=== PATIENT | female | born 1930 | race Caucasian/White ===

== ENCOUNTER 2022-01-21 07:31 | Emergency (ER) | payer MEDICARE ==
[2022-01-21] MEDS ORDERED: Iopamidol 370 76% 100 ML VIAL FS ONE (07:32)
[2022-01-21] MEDS ORDERED: Pantoprazole 40 MG VIAL ONE ×2 (07:48→08:45)
[2022-01-21 07:57] LABS: #Basophils 0.1 thou/uL (0.0-0.2); #Eosinphils 0.5 thou/uL (0.0-0.7); #Lymphocytes 1.3 thou/uL (1.20-3.40); #Monocytes 0.8 thou/uL (0.11-0.59); %Basophils 0.5 % (0.0-1.0); %Eosinophils 5.7 % (0.0-10.0); %Lymphocytes 13.6 % (21.0-51.0); %Monocytes 7.8 % (0.0-10.0); %Neutrophils 72.4 % (42.0-75.0); Hemoglobin 12.4 g/dL (12.0-16.0); Mean Corpuscular HGB CONC 33.8 g/dL (32.0-36.0); Mean Corpuscular Hemoglobin 31.1 pg (27.0-31.0); Mean Platelet Volume 5.9 fL (7.4-10.4); Platelet Count 306 thou/uL (130-400); RBC Distribution Width 11.4 % (11.5-14.5); Red Blood Cell (RBC) Count 3.98 mill/uL (4.20-5.40); White Blood Cell (WBC) Count 9.6 thou/uL (4.8-10.8)
[2022-01-21 08:09] LABS: INR-International Normal Ratio 1.1; Prothrombin Time 13.9 sec (12.0-14.7)
[2022-01-21 08:10] LABS: PTT 47.8 sec (22.9-36.1)
[2022-01-21 08:12] LABS: ALT (SGPT) 10 U/L (8-55); AST (SGOT) 15 U/L (5-34); Albumin 3.8 g/dL (3.4-4.8); Alkaline Phosphatase 80 U/L (40-110); Anion Gap 15 mmol/L (10-20); BUN (Urea Nitrogen) 21 mg/dL (9.8-20.1); Bilirubin, Total 0.6 mg/dL (0.2-1.2); Calc. Creatinine Clearance 0 mL/min (70-130); Calcium 9.4 mg/dL (7.8-10.44); Carbon Dioxide 20 mmol/L (23-31); Chloride 110 mmol/L (98-107); Estimated GFR 67; Globulin 2.8 g/dL (2.4-3.5); Glucose 101 mg/dL (83-110); Potassium 4.5 mmol/L (3.5-5.1); Protein, Total 6.6 g/dL (5.8-8.1); Sodium 140 mmol/L (136-145)
== END 2022-01-21 11:04 | disposition home or self-care (01) ==
LOC: BURERS 07:31
DX: K62.5 Hemorrhage of anus and rectum (principal); I10 Essential (primary) hypertension; E03.9 Hypothyroidism, unspecified; Z95.2 Presence of prosthetic heart valve; Z79.82 Long term (current) use of aspirin; Z79.899 Other long term (current) drug therapy
CPT/HCPCS: 36415; 74177; 80053; 82274; 83605; 85025; 85610; 85730; 86850; 86900; 86901; 93005; 96365; 96366; 96376; C9113; Q9967